=== PATIENT | female | born 1980 | race Two or more races ===

== ENCOUNTER 2025-06-20 13:18 | Emergency (ER) | payer MEDICAID ==
[~2025-06-20] VITALS: Ht 152.4 cm; Wt 108.0 kg
[2025-06-20] MEDS ORDERED: MECLIZINE HCL 25 MG TABLET ONE (13:59)
[2025-06-20] MEDS: MECLIZINE HCL 25 MG TABLET PO ONE (14:06)
[2025-06-20 14:10] LABS: PLATELET COUNT (AUTO) 428 K/uL (150-450); RED BLOOD CELL COUNT(AUTO) 4.58 MIL/uL (4.0-5.2); RED CELL DISTRIBUTION WIDTH 15.2 % (11.5-15.0); WHITE BLOOD COUNT (AUTO) 7.6 K/uL (4.3-11.0)
[2025-06-20 14:18] LABS: CALCIUM, SERUM 9.3 mg/dL (8.5-10.1); CREATININE 0.7 mg/dL (0.6-1.3); SODIUM SERUM 136 mmol/L (136-145); UREA NITROGEN, BLOOD 11 mg/dL (7-18)
[2025-06-20 14:30] LABS: ASPARTATE AMINOTRANSFERASE 14 U/L (15-37); NT-PRO BNP 43 pg/mL (0-125); TOTAL PROTEIN, SERUM 7.1 g/dL (6.4-8.2)
[2025-06-20] MEDS: IV NS 0.9% 1,000 ML BAG IV ONE (14:39)
[2025-06-20] MEDS ORDERED: MECL-159 PO (14:50)
[2025-06-20] MEDS ORDERED: IBUP-1490 PO (14:50)
[2025-06-20 15:34] VITALS: BP 154/82; TEMP 98.5; O2SAT 98
[2025-06-23] MEDS ORDERED: CEPHALEXIN MONOHYDRATE 500 MG CAPSULE PO ONE (23:43)
[2025-06-23] MEDS ORDERED: CIPROFLOXACIN HCL 500 MG TABLET ONE (23:43)
== END 2025-06-20 15:34 | disposition home or self-care (01) ==
LOC: ER 13:44
DX: R42 Dizziness and giddiness (principal); R07.89 Other chest pain; R51.9 Headache, unspecified; I10 Essential (primary) hypertension; R06.02 Shortness of breath
CPT/HCPCS: 99285; 96360; 71045; 93005; 85025; 80048; 80076; 36415; 84484; 83880; J8597; J7030